=== PATIENT | male | born 1960 | race Two or more races ===

== ENCOUNTER 2024-02-29 08:30 | Outpatient (RCR) | payer MEDICAID, SELFPAY ==
--- NOTE | 2024-02-22 08:42 | PTNOTE_ITS ---
PT OP Initial Eval Patient Information Outpatient Physical Therapy Treatment Date: 02/22/24 Visit Reasons: Right knee pain Medical Diagnosis: M17.11 Treatment Dx #1: R knee pain Start of Care: 02/22/24 Date of Onset: October 2023 Smoking Status Smoking Status: Never smoker Initial Assessment Subjective: Pt is 64 yr old persian speaking male who reports onset of R knee pain in October that prevents him from walking fast. Increased pain with fast movements into flexion, stairs and squatting. 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 Pt goal: less R knee pain in order to bend it back Objective: R knee AROM: ? Flexion: 120 ? Extension: full ? SLR: 35 deg with mild pain ? Strength: L quads 4-/5 limited by patella compression pain, hams trings 4/5 ? Patella crepitus: positive ? Special testing: ? Patella compression: positive Assessment: Pt presents with R patella compression sensitivity and crepitus which limits strength and tolerance with ladders and stairs. Pt not likely going to meet goals with therapy visits but we will try a couple next week and then reassess. Short Term and Group Home Goals 1. Independent with HEP ? 2. Improved quad strength to 4+/5 ? 3. Pt will squat to 75% depth x10 without increase in knee pain ? 4. Pt will ascend/descend 1 flight of stairs with <=3/10 L knee pain Treatment Plan 1. Manual therapy ? 2. Therex ? 3. Modalities as indicated, MHP, ice, estim Frequency and Duration: 2 trial visits next week then reassess Certification Dates: 02/22/24 to 03/23/24 Procedure Charges OP PT Eval Mod Complex 30 minutes: Yes
--- NOTE | 2024-02-27 10:06 | PT.ODAYNRPT ---
PT Outpatient Daily Note OP Daily Note Outpatient Physical Therapy Treatment Date: 02/27/24 Visit Reasons: Right knee pain Subjective: Pt reports R knee with bending. Objective: Please see flow sheet for ther ex list. Assessment: Pt ambulates with poor knee flexion during swing phase. Instructed pt and educated pt on heel toe gait and worked on knee flexion during swing phase, pt had hard time replicating normal gait pattern. Plan: Continue with pOC. Length of Time (minutes) of Treatment: 30 Minutes Procedure Charges Therapeutic Exercise 30 minutes: Yes
--- NOTE | 2024-02-29 15:37 | PT.ODS1RPT ---
PT OP Progress/Discharge Note Date of Service: 02/29/24 Progress Note/DC Note Progress Note/Discharge Note: DC Note Patient Information Visit Reasons: Right knee pain Service Continue Service or Discharge: Discharge Discharge Date: 02/29/24 Status Subjective: Not much change with therapy visits. Continued grinding and pain under kneecap Objective: See F/S for therex Same as time of evaluation Assessment: Pt attended the eval and 2 Rx sessions with limited progress with therapy goals due to continued R patella crepitus and increased knee pain. Pt not likely going to meet therapy goals due to this. Pt will be out of town in March and is not progressing with goals so he will D/C from therapy. PT recommends further diagnostic imaging of R knee. Plan: D/C with HEP Procedure Charges Therapeutic Exercise 30 minutes: Yes
== END 2024-03-12 23:59 | disposition home or self-care (01) ==
LOC: CPTX 08:30
PROVIDERS: PCP Nurse Practitioner Primary Care; Referring Provider Nurse Practitioner Primary Care; Visit Provider Nurse Practitioner Primary Care
DX: M25.561 Pain in right knee (principal); M17.11 Unilateral primary osteoarthritis, right knee
CPT/HCPCS: 97110; 97162